=== PATIENT | female | born 1955 | race Hispanic/Latino ===

== ENCOUNTER 2018-11-01 08:02 | Day surgery (SDC) | payer MEDICARE ==
[~2018-11-01] VITALS: Ht 153.7 cm; Wt 30.8 kg
[~2018-11-01 08:02] MED LIST: SODIUM CHLORIDE 0.9% 1000ML 1,000 ML IV ONE
[2018-11-01 11:32] VITALS: BP 183/59
[2018-11-01 11:43] LABS: BASOPHILS % (AUTO) 0.8 % (0.0-5.0); EOSINOPHILS % (AUTO) 0.7 % (0.0-8.0); HEMATOCRIT 43.2 % (36-48); LYMPHOCYTES % (AUTO) 30.1 % (21.0-51.0); MEAN CORPUSCULAR HEMOGLOBIN 29.7 pg (27.0-33.0); MEAN CORPUSCULAR VOLUME 90.1 fL (79-99); MONOCYTES % (AUTO) 6.1 % (3.0-13.0); NEUTROPHILS % (AUTO) 62.3 % (40.0-77.0); PLATELET COUNT (AUTO) 219 K/uL (130-400); RED BLOOD CELL COUNT(AUTO) 4.79 MIL/uL (4.00-5.50); RED CELL DISTRIBUTION WIDTH 15.4 % (11.0-15.5); WHITE BLOOD COUNT (AUTO) 10.4 K/uL (4.8-10.8)
[2018-11-01 11:56] LABS: INR 1.02 (0.85-1.15); PROTHROMBIN TIME 10.7 SEC (9.6-11.6)
[2018-11-01] MEDS ORDERED: OMEP40CA37 PO (12:09)
[2018-11-01] MEDS ORDERED: METH1TAB30 PO (12:09)
[2018-11-01] MEDS ORDERED: LISI40TA4 PO (12:09)
[2018-11-01] MEDS ORDERED: LINA5TAB PO (12:09)
[2018-11-01] MEDS ORDERED: METO25TA6 PO (12:09)
[2018-11-01] MEDS ORDERED: ASPI-555 PO (12:09)
[2018-11-01] MEDS ORDERED: LINA145C PO (12:09)
[2018-11-01] MEDS ORDERED: HYDR-4153 PO (12:09)
[2018-11-01] MEDS ORDERED: INSU300I SQ (12:09)
[2018-11-01] MEDS ORDERED: L.AC1CAP6 PO (12:09)
[2018-11-01] MEDS ORDERED: calcium PO (12:09)
[2018-11-01] MEDS ORDERED: ROSU20TA23 PO (12:09)
[2018-11-01] MEDS ORDERED: ABAL1.56 SQ (12:09)
[2018-11-01 12:30] VITALS: BP 136/98
[2018-11-01 12:35] VITALS: BP 160/98
[2018-11-01 12:40] VITALS: BP 168/88
[2018-11-01 12:45] VITALS: BP 169/92
[2018-11-01 12:50] VITALS: BP 165/92
--- NOTE | 2018-11-01 12:50 | NUR ---
dc dc instructions given to pt daughter, instructed to f/u with dr. barrios, continue home meds. pt waiting for ride from [place].
--- NOTE | 2018-11-01 14:00 | NUR ---
DC PT DC HOME VIA WC, NO DISTRESS NOTED. DENIED ANY PAIN OR DISCOMFORTS. ACCOMPANIED BY DAUGHTER. PATIENT RIDE CAME FROM [place].
== END 2018-11-01 14:00 | disposition home or self-care (01) ==
LOC: ENDO 08:02 → DAH 08:02 → ENDO 14:00
PROVIDERS: ATTEND Internal Medicine
DX: K29.70 Gastritis, unspecified, without bleeding (principal); K85.90 Acute pancreatitis without necrosis or infection, unspecified; K44.9 Diaphragmatic hernia without obstruction or gangrene; R93.5 Abnormal findings on diagnostic imaging of other abdominal regions, including retroperitoneum; K59.00 Constipation, unspecified; E78.5 Hyperlipidemia, unspecified; E11.22 Type 2 diabetes mellitus with diabetic chronic kidney disease; K21.9 Gastro-esophageal reflux disease without esophagitis; I12.9 Hypertensive chronic kidney disease with stage 1 through stage 4 chronic kidney disease, or unspecified chronic kidney disease; N18.9 Chronic kidney disease, unspecified; Z79.82 Long term (current) use of aspirin; Z79.4 Long term (current) use of insulin; Z79.899 Other long term (current) drug therapy; Z86.010 Personal history of colon polyps; Z90.49 Acquired absence of other specified parts of digestive tract
CPT/HCPCS: 36415; 43237; 84132; 85025; 85610; A4606; J7030